=== PATIENT | female | born 1990 | race Caucasian/White ===

== ENCOUNTER 2016-04-05 08:22 | Emergency (ER) | payer BC ==
[2016-04-05 10:02] VITALS: BP 119/75
--- NOTE | 2016-04-05 10:51 | UC ---
Throat Pain/Nasal Mariano HPI - HPI Summary HPI Summary: SORE THROAT FOR SIX DAYS, BILATERAL EAR PAIN FOR THREE DAYS. NO FEVER. OCCASIONAL COUGH. SINUS CONGESTION. NO RASH. NO ABDOMINAL PAIN. - History of Current Complaint Chief Complaint: UCGeneralIllness Stated Complaint: SORE THROAT Time Seen by Provider: 04/05/16 10:02 Hx Obtained From: Patient Hx Last Menstrual Period: 03/02/17 Onset/Duration: Gradual Onset, Lasting Weeks, Still Present Severity: Mild Pain Intensity: 0 Pain Scale Used: 0-10 Numeric Cough: Nonproductive Associated Signs & Symptoms: Positive: FB Sensation, Hoarseness, Sinus Discomfort - Epiglottits Risk Factors Epiglottis Risk Factors: Negative - Allergies/Home Medications Allergies/Adverse Reactions: Allergies Allergy/AdvReac Type Severity Reaction Status Date / Time No Known Allergies Allergy Verified 04/05/16 10:02 PMH/Surg Hx/FS Hx/Imm Hx Previously Healthy: Yes - Surgical History Surgical History: Yes Surgery Procedure, Year, and Place: pinky finger 09/2013 pinned - Family History Known Family History: Negative: Respiratory Disease - Social History Occupation: Employed Full-time Lives: With Family Alcohol Use: Rare Substance Use Type: None Smoking Status (MU): Never Smoked Tobacco Have You Smoked in the Last Year: No - Immunization History Most Recent Influenza Vaccination: 11/17/15 Most Recent Tetanus Shot: utd Review of Systems Constitutional: Negative Skin: Negative Eyes: Negative ENT: Sore Throat, Ear Ache Respiratory: Cough Cardiovascular: Negative Gastrointestinal: Negative Genitourinary: Negative Motor: Negative Neurovascular: Negative Musculoskeletal: Negative Neurological: Negative Psychological: Negative All Other Systems Reviewed And Are Negative: Yes Physical Exam Triage Information Reviewed: Yes Appearance: No Pain Distress, Well-Nourished, Ill-Appearing - MILD Vital Signs: Initial Vital Signs Temp 98.1 F 04/05/16 09:57 Pulse 81 04/05/16 09:57 BP 119/75 04/05/16 09:57 Pulse Ox 100 04/05/16 09:57 Vital Signs Reviewed: Yes Eye Exam: Normal Eyes: Positive: Conjunctiva Clear ENT Exam: Normal ENT: Positive: Normal ENT inspection, Hearing grossly normal, Pharynx normal, TMs normal Dental Exam: Normal Neck exam: Normal Neck: Positive: Supple, Nontender, Enlarged Nodes @ - BILAT ANT CERVICAL CHAIN Respiratory Exam: Normal Respiratory: Positive: Chest non-tender, Lungs clear, Normal breath sounds, No respiratory distress, No accessory muscle use Cardiovascular Exam: Normal Cardiovascular: Positive: RRR, No Murmur, Pulses Normal, Brisk Capillary Refill Abdominal Exam: Normal Abdomen Description: Positive: Nontender, No Organomegaly, Soft Musculoskeletal Exam: Normal Musculoskeletal: Positive: Strength Intact, ROM Intact Neurological Exam: Normal Psychological Exam: Normal Psychological: Positive: Normal Response To Family Skin Exam: Normal Throat Pain/Nasal Course/Dx - Differential Dx/Diagnosis Differential Diagnosis/HQI/PQRI: Otitis Media, Pharyngitis, Sinusitis, URI Provider Diagnoses: OTITIS MEDIA. TONSILLITIS Discharge - Discharge Plan Condition: Stable Disposition: HOME Prescriptions: Amoxicillin/Clavulanate TAB* [Augmentin TAB 875*] 875 mg PO BID #20 tab Benzonatate CAP* [Tessalon CAP*] 100 mg PO TID PRN #15 cap PRN Reason: Cough Patient Education Materials: Otitis Media (ED), Tonsillitis (ED) Forms: *Work Release Referrals: [facility] [Outside] No Primary Care Phys,NOPCP [Primary Care Provider] -
== END 2016-04-05 10:25 | disposition home or self-care (01) ==
LOC: UCEAST 08:22
DX: J03.90 Acute tonsillitis, unspecified (principal); H66.93 Otitis media, unspecified, bilateral
CPT/HCPCS: 99212; G0463

== ENCOUNTER 2016-04-18 10:40 | Emergency (ER) | payer BC ==
[2016-04-18 11:43] VITALS: BP 120/71
--- NOTE | 2016-04-18 13:19 | UC ---
FLU HPI - HPI Summary HPI Summary: pt has been sick with ST, dizziness, headache, ears itching, generalized fatigue for 6 days. Was seen at [facility] had strep and mono tests done, both neg. Continues to feel badly. Has missed work all week. 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 - History of Current Complaint Chief Complaint: UCGeneralIllness Stated Complaint: FLU COMPLAINT Time Seen by Provider: 04/18/16 13:08 Hx Obtained From: Patient, Family/Supervisor Maintenance And Custodians - mother Hx Last Menstrual Period: "the first week in April" ?: No Onset/Duration: Gradual Onset, Lasting Days, Still Present, Worse Since - past few days Severity Currently: Severe Severity Initially: Moderate Pain Intensity: 6 Pain Scale Used: 0-10 Numeric Associated Signs & Symptoms: Positive: Fever, Myalgia, Cough, Sore Throat, Nasal Congestion, Headache - Risk Factors Influenza Risk Factors: Negative - Allergy/Home Medications Allergies/Adverse Reactions: Allergies Allergy/AdvReac Type Severity Reaction Status Date / Time No Known Allergies Allergy Verified 04/18/16 11:38 Home Medications: Home Medications Norgestimate-Eth Estradiol(NF) [Ortho Tri-Cyclen (NF)] 1 tab PO BEDTIME [History Confirmed 04/18/16] Phenylephrine HCl (Oral) [Sudafed PE Maximum Streng] 10 mg PO Q4H PRN 04/18/16 [ History Confirmed 04/18/16] Phenylephrine-Chlorpheniramine [Theraflu Severe Cold Nigh] 2 tab PO Q4H PRN 11/24 [History Confirmed 04/18/16] PMH/Surg Hx/FS Hx/Imm Hx Previously Healthy: Yes - Surgical History Surgical History: Yes Surgery Procedure, Year, and Place: pinky finger 09/2013 pinned - Family History Known Family History: Negative: Respiratory Disease - Social History Occupation: Employed Full-time Lives: With Family Alcohol Use: Rare Substance Use Type: None Smoking Status (MU): Never Smoked Tobacco Have You Smoked in the Last Year: No - Immunization History Most Recent Influenza Vaccination: 11/17/15 Most Recent Tetanus Shot: utd Review of Systems Constitutional: Fever Skin: Negative Eyes: Negative ENT: Sore Throat, Ear Ache Respiratory: Cough Cardiovascular: Negative Gastrointestinal: Negative Genitourinary: Negative Motor: Negative Neurovascular: Negative Musculoskeletal: Myalgia Neurological: Negative Psychological: Negative All Other Systems Reviewed And Are Negative: Yes Physical Exam Triage Information Reviewed: Yes Appearance: Well-Nourished, Ill-Appearing, Pain Distress Vital Signs: Initial Vital Signs Temp 98 F 04/18/16 11:33 Pulse 80 04/18/16 11:33 Resp 16 04/18/16 11:33 BP 120/71 04/18/16 11:33 Pulse Ox 100 04/18/16 11:33 Vital Signs Reviewed: Yes Eyes: Positive: Conjunctiva Clear ENT: Positive: Pharyngeal erythema, Nasal drainage, TM bulging, Other: - sinus tenderness bilat Respiratory: Positive: Lungs clear, Normal breath sounds, No respiratory distress Cardiovascular: Positive: RRR, No Murmur, Pulses Normal, Brisk Capillary Refill Abdomen Description: Positive: Nontender, No Organomegaly, Soft. Negative: Distended, Guarding, Hepatomegaly, McBurney's Point Tenderness, Peritoneal Signs , Pulsatile Mass, Splenomegaly Bowel Sounds: Positive: Present Musculoskeletal: Positive: Strength Intact, ROM Intact Neurological: Positive: Alert, Muscle Tone Normal Psychological Exam: Normal Psychological: Positive: Normal Response To Family Skin Exam: Normal Flu Course/Dx - Course Course Of Treatment: rapid A neg - Differential Dx/Diagnosis Differential Diagnosis/HQI/PQRI: Bronchitis, Influenza, RSV, Upper Respiratory Infection, Other - sinusitis, strep Provider Diagnoses: sinusitis. pharyngitis Discharge - Discharge Plan Condition: Stable Disposition: HOME Prescriptions: Amoxicillin/Clavulanate TAB* [Augmentin TAB 875*] 875 mg PO BID #20 tab Patient Education Materials: Sinusitis (ED) Forms: *Work Release Referrals: No Primary Care Phys,NOPCP [Primary Care Provider] -
== END 2016-04-18 14:00 | disposition home or self-care (01) ==
LOC: UCCORT 10:40
DX: J32.9 Chronic sinusitis, unspecified (principal)
CPT/HCPCS: 87651; 99212; G0463

== ENCOUNTER 2016-07-04 08:23 | Emergency (ER) | payer BC ==
[2016-07-04 08:31] VITALS: BP 112/74
[2016-07-04] MEDS ORDERED: Ketorolac INJ* 60 MG/2 ML VIAL IM ONE (11:04)
[2016-07-04] MEDS ORDERED: Prochlorperazine TAB* 5 MG PO ONE (11:05)
--- NOTE | 2016-07-04 11:11 | UC ---
Headache HPI - HPI Summary HPI Summary: Patient has had a MICHELLE that feels like a vise on the side of her head. slight nausea, dizzyness, no other symptoms. did have an endoscopy 4 days ago and has been tired and sluggish since. - History Of Current Complaint Chief Complaint: UCHeadache Stated Complaint: DIZZINESS,PRESSURE IN HEAD Time Seen by Provider: 07/04/16 10:54 Hx Obtained From: Patient Hx Last Menstrual Period: 06/22/16 ?: No Onset/Duration: Sudden Onset, Lasting Days Onset Of Symptoms: Still Present Initially Headache Was: Moderate Currently Pain Is: Severe Timing: Constant Character: Throbbing, Pressure - bilateral pressure Location of Headache: Temporal Aggravating Factor: Nothing Allevating Factors: Nothing Associated Signs And Symptoms: Positive: Dizziness, Nausea - Risk Factors SAH Risk Factors: Negative Meningitis Risk Factors: Negative - Allergies/Home Medications Allergies/Adverse Reactions: Allergies Allergy/AdvReac Type Severity Reaction Status Date / Time No Known Allergies Allergy Verified 07/04/16 08:31 Home Medications: Home Medications Omeprazole CAP* [Prilosec CAP* 20 MG] 40 mg PO DAILY 07/04/16 [History Confirmed 07/04/16] PMH/Surg Hx/FS Hx/Imm Hx Previously Healthy: Yes - Surgical History Surgical History: Yes Surgery Procedure, Year, and Place: pinky finger 09/2013 pinned. upper endoscopy 06/24 - Family History Known Family History: Negative: Respiratory Disease - Social History Alcohol Use: Rare Substance Use Type: None Smoking Status (MU): Never Smoked Tobacco Have You Smoked in the Last Year: No - Immunization History Most Recent Influenza Vaccination: 11/17/15 Most Recent Tetanus Shot: utd Review of Systems Constitutional: Negative Skin: Negative Eyes: Negative ENT: Negative Respiratory: Negative Cardiovascular: Negative Gastrointestinal: Negative Genitourinary: Negative Motor: Negative Neurovascular: Negative Musculoskeletal: Negative Neurological: Headache Psychological: Negative All Other Systems Reviewed And Are Negative: Yes Physical Exam Triage Information Reviewed: Yes Appearance: Well-Nourished, Ill-Appearing, Pain Distress Vital Signs: Initial Vital Signs Temp 97.1 F 07/04/16 08:25 Pulse 71 07/04/16 08:25 Resp 16 07/04/16 08:25 BP 112/74 07/04/16 08:25 Pulse Ox 100 07/04/16 08:25 Vital Signs Reviewed: Yes Eye Exam: Normal Eyes: Positive: Conjunctiva Clear ENT: Positive: Pharyngeal erythema, Nasal drainage, TM bulging Dental Exam: Normal Neck exam: Normal Neck: Positive: Supple, Nontender, No Lymphadenopathy Respiratory Exam: Normal Respiratory: Positive: Chest non-tender, Lungs clear, Normal breath sounds Cardiovascular Exam: Normal Cardiovascular: Positive: RRR, No Murmur, Pulses Normal Abdominal Exam: Normal Abdomen Description: Positive: Nontender, No Organomegaly, Soft Bowel Sounds: Positive: Present Musculoskeletal Exam: Normal Musculoskeletal: Positive: Strength Intact, ROM Intact, No Edema Neurological Exam: Other - PERRLA, EOMI, neg RHOMBERG, Gait is steady, Cranial nerves intact Neurological: Positive: Alert, Muscle Tone Normal Psychological: Positive: Other: - teary Skin Exam: Normal Headache Course/Dx - Course Course Of Treatment: hx obtained, exam performed, meds reviewed, toradol and compazine given for headache, given large glass of water and she admits to decreased po hydration, toradol produces good results. - Differential Dx/Diagnosis Differential Diagnosis/HQI/PQRI: Subdural Hematoma, Migraine, Sinus Headache, Temporal Arteritis, Tension Headache, Viral Syndrome Provider Diagnoses: tension headache. dehydration Discharge - Discharge Plan Condition: Stable Disposition: HOME Patient Education Materials: Tension Headache (ED), Dehydration (ED) Additional Instructions: get plenty of rest and increase your fluid intake. Recommendation is 1/2 your body weight in oz /day use the compazine as needed.
== END 2016-07-04 12:16 | disposition home or self-care (01) ==
LOC: UCCORT 08:23
DX: G44.209 Tension-type headache, unspecified, not intractable (principal); E86.0 Dehydration
CPT/HCPCS: 96372; 99212; A9270-GY; G0463; J1885

== ENCOUNTER 2016-09-10 11:05 | Emergency (ER) | payer BC ==
[2016-09-10 11:20] VITALS: BP 121/75
--- NOTE | 2016-09-10 11:24 | UC ---
Throat Pain/Nasal Mariano HPI - HPI Summary HPI Summary: 25 YEAR OLD PRESENTS WITH COMPLAINS OF A SORE THROAT. - History of Current Complaint Chief Complaint: UCRespiratory Stated Complaint: SORE THROAT Time Seen by Provider: 09/10/16 11:22 Hx Last Menstrual Period: 08/13/16 - Allergies/Home Medications Allergies/Adverse Reactions: Allergies Allergy/AdvReac Type Severity Reaction Status Date / Time No Known Allergies Allergy Verified 09/10/16 11:20 Home Medications: Home Medications [id number] [Vicks Dayquil/Nyquil Cold] 1 mis PO ONCE PRN 06/24 [History Confirmed 09/10/16] PMH/Surg Hx/FS Hx/Imm Hx - Surgical History Surgical History: Yes Surgery Procedure, Year, and Place: pinky finger 09/2013 pinned. upper endoscopy 06/24 - Family History Known Family History: Negative: Respiratory Disease - Social History Alcohol Use: Rare Substance Use Type: None Smoking Status (MU): Never Smoked Tobacco Have You Smoked in the Last Year: No - Immunization History Most Recent Influenza Vaccination: 11/17/15 Most Recent Tetanus Shot: utd Review of Systems Constitutional: Negative Skin: Negative Eyes: Negative ENT: Sore Throat, Nasal Discharge, Sinus Congestion Respiratory: Negative Cardiovascular: Negative Gastrointestinal: Negative Genitourinary: Negative Motor: Negative Neurovascular: Negative Musculoskeletal: Negative Neurological: Negative Psychological: Negative All Other Systems Reviewed And Are Negative: Yes Physical Exam Triage Information Reviewed: Yes Vital Signs: Initial Vital Signs Temp 36.2 C 09/10/16 11:16 Pulse 82 09/10/16 11:16 Resp 14 09/10/16 11:16 BP 121/75 09/10/16 11:16 Pulse Ox 100 09/10/16 11:16 Eye Exam: Normal ENT Exam: Normal ENT: Positive: Pharyngeal erythema, Nasal congestion, Tonsillar swelling, Tonsillar exudate Dental Exam: Normal Neck exam: Normal Neck: Positive: 1 Respiratory Exam: Normal Cardiovascular Exam: Normal Abdominal Exam: Normal Musculoskeletal Exam: Normal Neurological Exam: Normal Psychological Exam: Normal Skin Exam: Normal Throat Pain/Nasal Course/Dx - Differential Dx/Diagnosis Provider Diagnoses: STREP THROAT. TONSILLAR SWELLING Discharge - Discharge Plan Condition: Stable Disposition: HOME Prescriptions: Amoxicillin/Clavulanate TAB* [Augmentin TAB 875*] 875 mg PO BID #20 tab Magic M W2 Reinier/Maal/Nyst/Lido* 5 ml SWISH SPIT QID #120 ml Methylprednisolone [Medrol Dosepak 4 MG*] 4 mg PO .SEE ERNA INSTRUCTION #21 tab Patient Education Materials: Pharyngitis (ED) Forms: *Work Release Referrals: Non Staff,Doctor [Medical Doctor] - If Needed
== END 2016-09-10 11:53 | disposition home or self-care (01) ==
LOC: UCCORT 11:05
DX: J02.0 Streptococcal pharyngitis (principal); J35.1 Hypertrophy of tonsils
CPT/HCPCS: 87651; 99212; G0463

== ENCOUNTER 2016-09-22 12:50 | Emergency (ER) | payer BC ==
[2016-09-22 13:49] VITALS: BP 119/62
--- NOTE | 2016-09-22 15:01 | UC ---
Eye Complaint HPI - HPI Summary HPI Summary: Pt presents with c/o right eye pain and swelling X 1 day. Pt reports going to car race last night with dirt track and noticed when she went home that she mclean FB sensation in right eye and woke with mile swelling and tenderness to right eye. - History of Current Complaint Chief Complaint: UCEye Stated Complaint: RIGHT EYE SWOLLEN Time Seen by Provider: 09/22/16 14:57 Hx Obtained From: Patient Hx Last Menstrual Period: 09/10/16 ?: No Onset/Duration: Sudden Onset, Lasting Hours Timing: Constant Severity Initially: Mild Severity Currently: Mild Character: Sharp, Foreign Body Sensation Aggravating Factor(s): Light, Blinking Alleviating Factor(s): Darkness Associated Signs And Symptoms: Positive: Drainage (Clear), Swelling - mild periorbital - Risk Factors Globe Rupture Risk Factors: Negative Acute Glaucoma Risk Factors: Negative - Allergies/Home Medications Allergies/Adverse Reactions: Allergies Allergy/AdvReac Type Severity Reaction Status Date / Time No Known Allergies Allergy Verified 09/22/16 13:39 PMH/Surg Hx/FS Hx/Imm Hx Previously Healthy: Yes - Surgical History Surgical History: Yes Surgery Procedure, Year, and Place: pinky finger 09/2013 pinned. upper endoscopy 06/24 - Family History Known Family History: Negative: Respiratory Disease - Social History Alcohol Use: Rare Substance Use Type: None Smoking Status (MU): Never Smoked Tobacco Have You Smoked in the Last Year: No - Immunization History Most Recent Influenza Vaccination: 11/17/15 Most Recent Tetanus Shot: utd Review of Systems Constitutional: Negative Skin: Negative Eyes: Other - Foreign body sensation ENT: Negative Respiratory: Negative Cardiovascular: Negative Gastrointestinal: Negative Genitourinary: Negative Motor: Negative Neurovascular: Negative Musculoskeletal: Negative Neurological: Negative Psychological: Negative All Other Systems Reviewed And Are Negative: Yes Physical Exam Triage Information Reviewed: Yes Appearance: Well-Appearing Vital Signs: Initial Vital Signs Temp 97.6 F 09/22/16 13:40 Pulse 72 09/22/16 13:40 Resp 16 09/22/16 13:40 BP 119/62 09/22/16 13:40 Pulse Ox 100 09/22/16 13:40 Vital Signs Reviewed: Yes Eye Exam: Normal Eyes: Positive: Other: - FB noted after fluorescein staining and removed with eye wash. ENT Exam: Normal Neck exam: Normal Respiratory Exam: Normal Cardiovascular Exam: Normal Musculoskeletal Exam: Normal Neurological Exam: Normal Psychological Exam: Normal Skin Exam: Normal Eye Complaint Course/Dx - Differential Dx/Diagnosis Differential Diagnosis/HQI/PQRI: Corneal Abrasion, Foreign Body Provider Diagnoses: FB right eye. FB removed in right eye removed, with copious eye stream Discharge - Discharge Plan Condition: Stable Disposition: HOME Prescriptions: Polymyx/Trimethoprim OPTH* [Polytrim OPHTH*] 2 drop RIGHT EYE Q8H #1 btl Patient Education Materials: Eye Foreign Body (ED) Referrals: Kiah Pepe MD [Primary Care Provider] - Additional Instructions: Please follow up with your PCP or your eye care provider as needed. If unable to see either provider, please return to clinic as needed
[2016-09-22] MEDS ORDERED: Eye Irrigation Solution 30 ML BOTTLE RIGHT EYE ONE (15:05)
[2016-09-22] MEDS ORDERED: Tetracaine 0.5% OPTH.SOL 4 ML* 1 DROP BTL RIGHT EYE ONE (15:05)
[2016-09-22] MEDS ORDERED: Fluorescein Sodium TOPICAL* 1 MG TEST OPHTHALMIC ONE (15:06)
== END 2016-09-22 15:36 | disposition home or self-care (01) ==
LOC: UCCORT 12:50
DX: T15.91XA Foreign body on external eye, part unspecified, right eye, initial encounter (principal)
CPT/HCPCS: 99212; A9270-GY; G0463

== ENCOUNTER 2016-12-13 12:42 | Emergency (ER) | payer BC ==
[2016-12-13 13:15] VITALS: BP 112/69
--- NOTE | 2016-12-13 13:48 | UC ---
Respiratory Complaint HPI - HPI Summary HPI Summary: 3 DAYS OF LEFT SIDED SINUS PRESSURE AND FACIAL PAIN. HAS FOUL GREEN NASAL DISCHARGE. DENIES FEVER. ONLY HAS VERY MILD COUGH. PT STATES SHE "GETS THIS EVERY YEAR". - History of Current Complaint Chief Complaint: UCGeneralIllness Stated Complaint: SINUS ISSUE Time Seen by Provider: 12/13/16 13:23 Hx Obtained From: Patient Hx Last Menstrual Period: 11/28/16 Onset/Duration: Gradual Onset, Lasting Days, Still Present Timing: Constant Severity Initially: Moderate Severity Currently: Moderate Pain Intensity: 5 Pain Scale Used: 0-10 Numeric Character: Cough: Nonproductive Aggravating Factors: Nothing Alleviating Factors: Nothing Associated Signs And Symptoms: Positive: Nasal Congestion, Sinus Discomfort. Negative: Fever - Allergies/Home Medications Allergies/Adverse Reactions: Allergies Allergy/AdvReac Type Severity Reaction Status Date / Time No Known Allergies Allergy Verified 12/13/16 13:15 Home Medications: Home Medications Dicyclomine CAP* [Bentyl CAP*] 1 tab PO DAILY PRN 12/13/16 [History Confirmed ] PMH/Surg Hx/FS Hx/Imm Hx Other GI/ History: IBS Psychological History: Anxiety - Surgical History Surgical History: Yes Surgery Procedure, Year, and Place: pinky finger 09/2013 pinned. upper endoscopy 06/24 - Family History Known Family History: Negative: Respiratory Disease Family History: CANCER - Social History Alcohol Use: Rare Substance Use Type: None Smoking Status (MU): Never Smoked Tobacco Have You Smoked in the Last Year: No - Immunization History Most Recent Influenza Vaccination: 11/17/15 Most Recent Tetanus Shot: utd Review of Systems ENT: Ear Ache, Nasal Discharge Respiratory: Cough Cardiovascular: Negative Gastrointestinal: Negative Neurological: Headache All Other Systems Reviewed And Are Negative: Yes Physical Exam Triage Information Reviewed: Yes Appearance: Well-Appearing, No Pain Distress, Well-Nourished Vital Signs: Initial Vital Signs Temp 98.1 F 12/13/16 13:10 Pulse 76 12/13/16 13:10 Resp 16 12/13/16 13:10 BP 112/69 12/13/16 13:10 Pulse Ox 100 12/13/16 13:10 Vital Signs Reviewed: Yes Eyes: Positive: Conjunctiva Clear ENT: Positive: Hearing grossly normal, Pharynx normal, TMs normal Neck: Positive: Supple, Nontender, No Lymphadenopathy Respiratory Exam: Normal Cardiovascular Exam: Normal Abdomen Description: Positive: Soft Musculoskeletal: Positive: No Edema Neurological: Positive: Alert Psychological: Positive: Age Appropriate Behavior Skin: Negative: rashes UC Diagnostic Evaluation - Laboratory O2 Sat by Pulse Oximetry: 100 Respiratory Course/Dx - Differential Dx/Diagnosis Provider Diagnoses: SINUSITIS Discharge - Discharge Plan Condition: Stable Disposition: HOME Prescriptions: Amoxicillin PO (*) [Amoxicillin 500 MG CAP*] 1,000 mg PO Q12H #40 cap Patient Education Materials: Sinusitis (ED), Rhinosinusitis (ED) Referrals: Kiah Pepe MD [Primary Care Provider] - If Needed Additional Instructions: ACUTE RHINOSINUSITIS It is generally not possible to distinguish viral from bacterial acute rhinosinusitis (ARS) in the first 10 days of illness. Acute bacterial rhinosinusitis (ABRS) should be suspected in patients presenting with any of the following three features: 1) persistent symptoms or signs of ARS lasting 10 or more days with no clinical improvement; 2) onset with severe symptoms (fever >39C or 102F and purulent nasal discharge or facial pain) lasting at least three consecutive days at the beginning of illness; 3) onset with worsening symptoms following a viral upper respiratory infection that lasted five to six days and was initially improving. Management of acute viral rhinosinusitis (AVRS) aims to relieve symptoms of nasal obstruction and rhinorrhea; treatment for ABRS includes antibiotics to eliminate the infection and prevent complications. AVRS is expected to resolve within 10 days; ABRS may also resolve spontaneously within the first 10 days. Patients who present with fewer than 10 days of symptoms, in the absence of high fever or symptoms suggesting complicated illness, should be managed with supportive care - mild analgesics, saline nasal irrigation, and fluid. Consider treatment with intranasal glucocorticoids. Decongestants may be useful when eustachian tube dysfunction is a factor for patients with AVRS, but are not likely to be helpful for patients with ABRS. YOUR SYMPTOMS ARE LIKELY VIRALLY MEDIATED AND SHOULD RESOLVE ON THEIR OWN WITH TIME. GIVEN YOUR H/O SINUS INFECTIONS WILL GO AHEAD AND TREAT WITH AN ANTIBIOTIC BUT I ENCOURAGE YOU TO GIVE YOUR SYMPTOMS SOME MORE TIME TO START IMPROVING ON THEIR OWN. REST, HYDRATE, OTC MEDS NEEDED. SEEK FOLLOW-UP IF YOU ARE NOT IMPROVING EXPECTED.
== END 2016-12-13 13:45 | disposition home or self-care (01) ==
LOC: UCEAST 12:42
DX: J32.9 Chronic sinusitis, unspecified (principal)
CPT/HCPCS: 99212; G0463

== ENCOUNTER 2017-03-25 16:49 | Emergency (ER) | payer SELFPAY ==
[2017-03-25 17:33] VITALS: BP 122/75
--- NOTE | 2017-03-25 17:59 | UC ---
FLU HPI - HPI Summary HPI Summary: About 1 week of uri sx sore throat and ear aches--no fevers took 4 doses of nephews amoxicillin last week last dose was 5 days ago--has continued sore throat neck and ear aches - History of Current Complaint Hx Obtained From: Patient Hx Last Menstrual Period: 03/11/17 ?: No Onset/Duration: Sudden Onset, Lasting Days, Still Present Severity Currently: Moderate Severity Initially: Moderate Associated Signs & Symptoms: Positive: Fever, Myalgia, Sore Throat <Elise Bird - Last Filed: 03/29/17 18:23> <Angeline Betancur - Last Filed: 03/30/17 16:18> - History of Current Complaint Chief Complaint: UCGeneralIllness Stated Complaint: EAR AND SINUS PAIN Time Seen by Provider: 03/25/17 17:51 - Allergy/Home Medications Allergies/Adverse Reactions: Allergies Allergy/AdvReac Type Severity Reaction Status Date / Time No Known Allergies Allergy Verified 03/25/17 17:23 PMH/Surg Hx/FS Hx/Imm Hx Previously Healthy: Yes - Surgical History Surgical History: Yes Surgery Procedure, Year, and Place: R pinky finger 09/2013 pinned. upper endoscopy 06/24 - Family History Known Family History: Negative: Respiratory Disease Family History: CANCER - Social History Occupation: Employed Full-time Lives: With Family Alcohol Use: Rare Substance Use Type: None Smoking Status (MU): Never Smoked Tobacco Have You Smoked in the Last Year: No - Immunization History Most Recent Influenza Vaccination: 2016 Most Recent Tetanus Shot: utd <Elise Bird - Last Filed: 03/29/17 18:23> Review of Systems Constitutional: Negative Skin: Negative Eyes: Negative ENT: Negative, Sore Throat, Ear Ache, Nasal Discharge Respiratory: Negative Cardiovascular: Negative Gastrointestinal: Negative Genitourinary: Negative Motor: Negative Neurovascular: Negative Musculoskeletal: Negative, Arthralgia, Myalgia Neurological: Negative Psychological: Negative Is Patient Immunocompromised?: No All Other Systems Reviewed And Are Negative: Yes <Elise Bird - Last Filed: 03/29/17 18:23> Physical Exam Triage Information Reviewed: Yes Appearance: Well-Appearing, No Pain Distress, Well-Nourished Vital Signs: Initial Vital Signs Temp 99.4 F 01/16/18 17:26 Pulse 86 03/25/17 17:26 Resp 20 03/25/17 17:26 BP 122/75 03/25/17 17:26 Pulse Ox 100 03/25/17 17:26 Vital Signs Reviewed: Yes Eye Exam: Normal Eyes: Positive: Conjunctiva Clear ENT Exam: Normal ENT: Positive: Normal ENT inspection, Hearing grossly normal, Pharynx normal. Negative: Nasal drainage, TMs normal, TM bulging, Tonsillar swelling, Tonsillar exudate, Trismus, Muffled voice, Hoarse voice, Dental tenderness, Sinus tenderness Dental Exam: Normal Neck exam: Normal Neck: Positive: Supple, Nontender, No Lymphadenopathy Respiratory Exam: Normal Respiratory: Positive: Chest non-tender, Lungs clear, Normal breath sounds, No respiratory distress, No accessory muscle use Cardiovascular Exam: Normal Cardiovascular: Positive: RRR, No Murmur, Pulses Normal, Brisk Capillary Refill Musculoskeletal Exam: Normal Musculoskeletal: Positive: Strength Intact, ROM Intact, No Edema Neurological Exam: Normal Neurological: Positive: Alert, Muscle Tone Normal Psychological Exam: Normal Skin Exam: Normal <Elise Bird - Last Filed: 03/29/17 18:23> Vital Signs: Initial Vital Signs Temp 99.4 F 03/25/17 17:26 Pulse 86 03/25/17 17:26 Resp 20 03/25/17 17:26 BP 122/75 03/25/17 17:26 Pulse Ox 100 03/25/17 17:26 <Angeline Betancur - Last Filed: 03/30/17 16:18> Flu Course/Dx - Course Course Of Treatment: flonase augmentin, increase fluids follow with pcp prn - Differential Dx/Diagnosis Provider Diagnoses: Acute rhinosinusitis <Elise Bird - Last Filed: 03/29/17 18:23> Discharge <Elise Bird - Last Filed: 03/29/17 18:23> <Angeline Betancur - Last Filed: 03/30/17 16:18> - Discharge Plan Condition: Stable Disposition: HOME Prescriptions: Amoxicillin/Clavulanate TAB* [Augmentin TAB 875*] 875 mg PO BID #20 tab Fluticasone NASAL SPRAY 50MCG* [Flonase NASAL SPRAY 50MCG*] 2 spray BOTH NARES DAILY #1 btl Patient Education Materials: Sinusitis (ED), How to Use Nasal [place] (ED) Referrals: [facility] [place] [facility]YSICIAN REFERRAL [Outside] - If Needed Attestation Statement User Type: Provider - I was available for consult. This patient was seen by the SANDRA. The patient was not presented to, seen by, or examined by me. -Virgen <Angeline Betancur - Last Filed: 03/30/17 16:18>
== END 2017-03-25 19:41 | disposition home or self-care (01) ==
LOC: UCEAST 16:49
DX: J01.90 Acute sinusitis, unspecified (principal); R50.9 Fever, unspecified
CPT/HCPCS: 87502; 87651; 99212; G0463

== ENCOUNTER 2018-07-05 11:40 | Emergency (ER) | payer BC ==
--- NOTE | 2018-07-05 12:24 | UC ---
Eye Complaint HPI - HPI Summary HPI Summary: 27 y/o female presents to the urgent care c/o bilateral eye redness, itchiness and yellowish drainage since yesterday. She also states when she woke up this morning, "both eyes were crusted over and closed". Pt reports she went to sleep over her grandfather who is sick and her Rt eye started to be red yesterday morning. At the end of the day the other eye was red. Pt denies eye pain, photophobia, visual disturbances, MICHELLE, URI, dizziness, SOB, chest pain, abdominal pain, N/V/D. Pt reports she had similar conjunctivitis last year and symptoms lasted a month and ophtlamologist Rx Tobramycin/dexamethasone oph drops and it completely resolve it. - History of Current Complaint Stated Complaint: BILATERAL EYE CONCERN Time Seen by Provider: 07/05/18 12:23 Hx Obtained From: Patient Hx Last Menstrual Period: 03/11/17 Onset/Duration: Gradual Onset, Lasting Days - 2 days, Still Present, Worse Since - today Timing: Constant Severity Initially: Mild Severity Currently: Moderate Pain Intensity: 0 Pain Scale Used: 0-10 Numeric Location of Injury: Conjunctiva - b/L conjunctiva red w/ yellowish drainage Character: Foreign Body Sensation Aggravating Factor(s): Blinking Alleviating Factor(s): Nothing Associated Signs And Symptoms: Positive: Drainage (Purulent) - yellowish. Negative: Photophobia, Vision Impairment Bilateral, Fever, Swelling Related History: Similar Episode - last year, but it lasted a month and ophtlamologist Rx tobramycin Dexamethasone which completely resolve it. Now she request same medication - Risk Factors Penetrating Injury Risk Factor: Negative Acute Glaucoma Risk Factors: Negative Optic Artery Occlusion Risk Factors: Negative - Allergies/Home Medications Allergies/Adverse Reactions: Allergies Allergy/AdvReac Type Severity Reaction Status Date / Time No Known Allergies Allergy Verified 07/05/18 12:27 PMH/Surg Hx/FS Hx/Imm Hx Previously Healthy: Yes Other GI/ History: IBS - Surgical History Surgical History: Yes Surgery Procedure, Year, and Place: R pinky finger 09/2013 pinned. upper endoscopy 06/24 - Family History Known Family History: Positive: Cardiac Disease Negative: Respiratory Disease Family History: CANCER - Social History Occupation: Employed Full-time Lives: With Family Alcohol Use: Rare Substance Use Type: None Smoking Status (MU): Never Smoked Tobacco Have You Smoked in the Last Year: No - Immunization History Most Recent Influenza Vaccination: 2017 Most Recent Tetanus Shot: utd Review of Systems All Other Systems Reviewed And Are Negative: Yes Constitutional: Positive: Negative Skin: Positive: Negative Eyes: Positive: Drainage - yellowish crusting, Eye Redness - b/L eye redness. Negative: Blurred Vision, Photophobia ENT: Positive: Negative Respiratory: Positive: Negative Cardiovascular: Positive: Negative Gastrointestinal: Positive: Negative Genitourinary: Positive: Negative Motor: Positive: Negative Neurovascular: Positive: Negative Musculoskeletal: Positive: Negative Neurological: Positive: Negative Psychological: Positive: Negative Is Patient Immunocompromised?: No Physical Exam - Summary Physical Exam Summary: Vital Signs Reviewed: Yes General: Well appearing, well nourished female in no apparent pain distress Eyes: Positive: b/L Conjunctiva Inflamed, R>L - Visual acuity: WNL,Visual pritchett : full to confrontation. PERRLA, EOMI intact w/out limitation or complaint of pain. eyelashes clear. mild tearing and yellowish drainage observed. No ciliary flush. No chemosis, No photophobia. Normal fundoscopic exam; no proptosis, exophthalmos, nystagmus. ENT: Positive: Normal ENT inspection, Hearing grossly normal, Pharynx normal, Nasal congestion, Nasal drainage - clear, TMs normal - B/L external ear canal clear , TM's WNL. Negative: Tonsillar swelling, Tonsillar exudate Neck: Positive: Supple, Nontender, No Lymphadenopathy Respiratory: Positive: Chest nontender, Lungs clear, Normal breath sounds, No respiratory distress Cardiovascular: Positive: RRR, No Murmur, Pulses Normal, Brisk Capillary Refill Abdomen Description: Positive: Nontender, No Organomegaly, Soft. Negative: CVA Tenderness (R), CVA Tenderness (L) Bowel Sounds: Positive: Present Musculoskeletal: Positive: Strength Intact, ROM Intact, No Edema Neurological Exam: Normal Psychological Exam: Normal Skin Exam: Normal Triage Information Reviewed: Yes Eye Complaint Course/Dx - Course Course Of Treatment: 27 y/o female presents to the urgent care c/o bilateral eye redness, itchiness and yellowish drainage since yesterday. She also states when she woke up this morning, "both eyes were crusted over and closed". Pt reports she went to sleep over her grandfather who is sick and her Rt eye started to be red yesterday morning. At the end of the day the other eye was red. Pt denies eye pain, photophobia, visual disturbances, MICHELLE, URI, dizziness, SOB, chest pain, abdominal pain, N/V/D. Hx obtained. Pt reports she had similar conjunctivitis last year and symptoms lasted a month and ophtlamologist Rx Tobramycin/ dexamethasone oph drops and it completely resolve it. Hx obtained. Pt w/ b/l eye bacterial conjunctivitis. Pt Rx tobramycin-Dexamethasone ophthalmic drops for herbacterial conjunctivitis. Pt instructed how to apply medication and if symptoms do not improve, advised to return to the urgent care or f/u with PCP or Opthlamologist DR Rader for further evaluation and treatment. Pt understood and agreed w/ plan of care. - Differential Dx/Diagnosis Differential Diagnosis/HQI/PQRI: Conjunctivitis, Periorbital Cellulitis, Orbital Cellulitis, Uveitis Provider Diagnosis: Bacterial conjunctivitis of both eyes Discharge - Sign-Out/Discharge Documenting (check all that apply): Patient Departure - d/c home All imaging exams completed and their final reports reviewed: No Studies - Discharge Plan Condition: Stable Disposition: HOME Prescriptions: Tobramycin/Dexameth OPTH.SUSP* [Tobradex 0.3-0.1%*] 1 drop BOTH EYES Q6H #1 btl Patient Education Materials: Conjunctivitis (ED) Forms: *Work Release Referrals: Kiah Pepe MD [Primary Care Provider] - 3 Days Edda Rader MD [Medical Doctor] - If Needed Additional Instructions: 1-Please apply ophthalmic drops as instructed and finish the full course of treatment to avoid recurrent infection. Encourage hand washing to avoid spread. 2-If you do not improve or if symptoms worsen please f/u with counter professional Dr Rader in 3 days for further evaluation and treatment - Billing Disposition and Condition Condition: STABLE Disposition: Home
[2018-07-05 12:27] VITALS: BP 111/69
== END 2018-07-05 12:55 | disposition home or self-care (01) ==
LOC: UCCORT 11:40
DX: H10.89 Other conjunctivitis (principal); B96.89 Other specified bacterial agents as the cause of diseases classified elsewhere
CPT/HCPCS: 99212; G0463